=== PATIENT | male | born 1965 | race Caucasian/White ===

== ENCOUNTER 2021-12-17 02:53 | Emergency (ER) | payer MEDICARE, OTHER ==
[2021-12-17] MEDS ORDERED: Acetaminophen/Codeine 300-30 MG Tab PO ONE (02:54)
[2021-12-17] MEDS ORDERED: HYDROmorphone 2 MG/ML SDV IM ONE (04:03)
[2021-12-17] MEDS ORDERED: hydrOXYzine HCl 50 MG/ML SDV IM ONE (04:03)
== END 2021-12-17 04:20 | disposition home or self-care (01) ==
LOC: FB.ED 02:53
DX: R05.9 Cough, unspecified (principal); I10 Essential (primary) hypertension; F17.210 Nicotine dependence, cigarettes, uncomplicated
CPT/HCPCS: 36415; 71101-LT; 80053; 81001; 84484; 85025; 93005; 93010; 96372; 99283; 99284-25; A9270-GY; J1170; J3410